=== PATIENT | male | born 1950 | race Hispanic/Latino ===

== ENCOUNTER 2023-04-10 07:23 | Outpatient (CLI) | payer MEDICARE, OTHER | END 2023-04-10 07:24 | disposition home or self-care (01) | LOC: BICULT 07:23 | PROVIDERS: ATTEND Internal Medicine | DX: R79.89 Other specified abnormal findings of blood chemistry (principal); K76.0 Fatty (change of) liver, not elsewhere classified; Z85.038 Personal history of other malignant neoplasm of large intestine | CPT/HCPCS: 76700 ==